=== PATIENT | male | born 1975 | race Asian ===

== ENCOUNTER 2016-07-07 02:42 | Emergency (ER) | payer OTHER ==
[~2016-07-07] VITALS: Ht 177.8 cm; Wt 72.6 kg
[~2016-07-07 02:42] MED LIST: HALOPERIDOL LACTATE INJ 5 MG/ML VIAL ONE; diphenhydrAMINE HCL 50 MG/ML VIAL ONE
[2016-07-07] MEDS ORDERED: LORAZEPAM INJ 2 MG/ML VIAL ONE (02:43)
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
[2016-07-07] MEDS ORDERED: diphenhydrAMINE HCL 50 MG/ML VIAL IM ONE (03:00)
[2016-07-07] MEDS ORDERED: IV NS 0.9% 1,000 ML BAG IV ONE (03:00)
[2016-07-07] MEDS ORDERED: LORAZEPAM INJ 2 MG/ML VIAL IM ONE (03:00)
[2016-07-07] MEDS ORDERED: HALOPERIDOL LACTATE INJ 5 MG/ML VIAL IM ONE (03:00)
[2016-07-07] MEDS ORDERED: IV SET PRIMARY 1 EA INFUS.SET MC ONE (03:06)
[2016-07-07] MEDS ORDERED: IV NS 0.9% 2,000 ML ONE (03:06)
[2016-07-07 03:17] LABS: BASOPHILS % (AUTO) 0.3 % (0.0-2.0); EOSINOPHILS # (AUTO) 0.2 /CMM (0.0-0.7); HEMATOCRIT 40 % (39-51); HEMOGLOBIN 13.7 g/dL (13.5-17.5); LYMPHOCYTES # (AUTO) 1.2 /CMM (0.8-4.8); LYMPHOCYTES % (AUTO) 11.4 % (20.0-44.0); MEAN CORPUSCULAR HEMOGLOBIN 31 PG (26.0-33.0); MEAN CORPUSCULAR HGB CONC 34 g/dl (31.0-36.0); MEAN CORPUSCULAR VOLUME 92 fL (80-96); MONOCYTES # (AUTO) 0.4 /CMM (0.1-1.30); MONOCYTES % (AUTO) 4.3 % (2.0-12.0); NEUTROPHILS # (AUTO) 8.5 /CMM (1.8-8.9); PLATELET COUNT (AUTO) 266 /CMM (150-450); RDW COEFFICIENT OF VARIATION 13.2 (11.5-15.0); RED BLOOD CELL COUNT(AUTO) 4.38 MIL/uL (4.5-6.0); WHITE BLOOD COUNT (AUTO) 10.3 K/uL (4.3-11.0)
[2016-07-07] MEDS ORDERED: LIDOCAINE 2% JEL UROJET 10 ML MM ONE ×2 (03:21→04:00)
[2016-07-07 03:25] LABS: CALCIUM, SERUM 8.7 mg/dL (8.5-10.1); CARBON DIOXIDE 25 mmol/L (21-32); CHLORIDE 104 mmol/L (98-107); CREATININE 1.2 mg/dL (0.6-1.3); GLUCOSE 191 mg/dL (74-106); POTASSIUM 3.7 mmol/L (3.5-5.1); SODIUM SERUM 141 mmol/L (136-145); UREA NITROGEN, BLOOD 18 mg/dL (7-18)
[2016-07-07 03:26] LABS: INR 0.96 (0.87-1.13); PROTHROMBIN TIME 10.2 SECS (9.5-12.7)
[2016-07-07 03:32] LABS: TROPONIN I < 0.017 ng/mL (0.00-0.056)
[2016-07-07 03:34] LABS: ALANINE AMINOTRANSFERASE 27 U/L (12-78); ALBUMIN 4.2 g/dL (3.4-5.0); ALKALINE PHOSPHATASE 65 U/L (46-116); ASPARTATE AMINOTRANSFERASE 17 U/L (15-37); BILIRUBIN,DIRECT 0.1 mg/dL (0.0-0.2); BILIRUBIN,TOTAL 0.8 mg/dL (0.2-1.0); TOTAL PROTEIN, SERUM 7.3 g/dL (6.4-8.2)
[2016-07-07 03:36] LABS: ACETAMINOPHEN 0 ug/ml (10-30); ALCOHOL, BLOOD < 3 mg/dL (0-0); SALICYLATE 0.7 mg/dL (2.8-20.0)
--- NOTE | 2016-07-07 03:38 | NUR ---
XRAY AT BEDSIDE
--- NOTE | 2016-07-07 03:38 | NUR ---
URINE COLLECTED. CALLED URINE FOR SALES SERVICE PROFESSIONAL.
[2016-07-07 03:49] LABS: APPEARANCE,URINE CLEAR (CLEAR); BILIRUBIN,URINE NEGATIVE (NEGATIVE); BLOOD, URINE NEGATIVE Ery/uL (NEGATIVE); COLOR,URINE YELLOW (YELLOW); KETONES,URINE NEGATIVE (NEGATIVE); LEUKOCYTE ESTERASE ,URINE NEGATIVE (NEGATIVE); NITRITE, URINE NEGATIVE (NEGATIVE); PROTEIN,URINE NEGATIVE (NEGATIVE); UGLUCOSE NEGATIVE (NEGATIVE); UROBILINOGEN,URINE 0.2 EU/dL (0.2)
--- NOTE | 2016-07-07 04:00 | NUR ---
PT TO CT.
--- NOTE | 2016-07-07 04:13 | NUR ---
PT RETURNED FROM CT.
--- NOTE | 2016-07-07 06:16 | NUR ---
REPORT GIVEN TO J[place] BERG FOR C.O.C
--- NOTE | 2016-07-07 07:06 | NUR ---
report given to am shift nurse for [facility]asia.
--- NOTE | 2016-07-07 08:00 | NUR ---
Pt awake, alert and oriented. VSS.
--- NOTE | 2016-07-07 08:20 | NUR ---
IV removed. Catheter intact and site benign. Pressure and 4x4 applied to site. No bleeding noted.
--- NOTE | 2016-07-07 09:10 | NUR ---
Patient discharged to home in stable condition. Written and verbal after care instructions given. Patient verbalizes understanding of instruction. Pt ambulatory with a steady gait.
[2016-07-07 09:16] VITALS: BP 128/86
== END 2016-07-07 09:17 ==
LOC: ER 02:46
DX: R41.82 Altered mental status, unspecified (principal); R45.1 Restlessness and agitation; T50.905A Adverse effect of unspecified drugs, medicaments and biological substances, initial encounter; Y92.89 Other specified places as the place of occurrence of the external cause; R73.09 Other abnormal glucose
CPT/HCPCS: 36415; 70450; 71010; 80048; 80076; 80305; 80329; 81001; 82550; 82962; 84484; 85025; 85730; 93005; 96360; 96361; 96372 ×3; 99285; A4606; G0480 ×2; J1200; J1630; J2060; J3490; J7030; Z7610; 81000-TC; G6039-TC